=== PATIENT | male | born 1945 | race American Indian/Alaskan Native ===

== ENCOUNTER 2018-02-19 11:07 | Emergency (ER) | payer BC ==
[2018-02-19 13:24] LABS: BASO # 0.1 K/uL (0.0-0.2); BASO % 1.2 % (0.0-2.0); EOS # 0.1 K/uL (0.0-0.7); EOS % 1.4 % (0.0-4.0); LYMPH # 1.3 K/uL (1.0-4.3); LYMPH % 13.7 % (20.0-40.0); MEAN CELL VOLUME 87.1 fL (80.0-94.0); MEAN CORPUSCULAR HEMOGLOBIN 28.4 pg (27.0-31.0); MEAN CORPUSCULAR HGB CONC 32.5 g/dL (33.0-37.0); MEAN PLATELET VOLUME 6.9 fL (7.2-11.7); MONO # 0.9 K/uL (0.0-0.8); MONO % 9.6 % (0.0-10.0); NEUT # 6.9 K/uL (1.8-7.0); NEUT % 74.1 % (50.0-75.0); RBC 4.22 Mil/uL (4.40-5.90); RED CELL DISTRIBUTION WIDTH 13.1 % (11.5-14.5); WHITE BLOOD COUNT 9.3 K/uL (4.8-10.8)
--- NOTE | 2018-02-19 13:37 | C.PDOC ---
History Of Present Illness 72 year old male with a history of CVA with right sided weakness presents to the ED for evaluation of right wrist and bilateral shoulder pain x1 week. The patient states his current symptoms began after holding grocery bags with both hands. He describes the pain as sharp and worse with range of joint or palpation. Denies fever, chills, shortness of breath, chest pain, numbness, motor weakness, and any other associated symptoms. Time Seen by Provider: 02/19/18 12:34 Chief Complaint (Nursing): Upper Extremity Problem/Injury History Per: Patient History/Exam Limitations: no limitations Onset/Duration Of Symptoms: Days Current Symptoms Are (Timing): Still Present Quality: Sharp Past Medical History Reviewed: Historical Data, Nursing Documentation, Vital Signs Vital Signs: Last Vital Signs Temp 98.1 F 02/19/18 11:19 Pulse 87 02/19/18 11:19 Resp 18 02/19/18 11:19 BP 184/82 H 02/19/18 11:19 Pulse Ox 99 02/19/18 11:19 - Medical History PMH: HTN Family History: States: Unknown Family Hx - Social History Hx Alcohol Use: Yes Hx Substance Use: No - Immunization History Hx Tetanus Toxoid Vaccination: No Hx Influenza Vaccination: Yes Hx Pneumococcal Vaccination: No Review Of Systems Except As Marked, All Systems Reviewed And Found Negative. Constitutional: Negative for: Fever, Chills Cardiovascular: Negative for: Chest Pain Respiratory: Negative for: Shortness of Breath Musculoskeletal: Positive for: Shoulder Pain (bilateral. ), Other (right wrist pain. ) Neurological: Negative for: Weakness, Numbness, Incoordination Physical Exam - Physical Exam Additional Physical Exam Comments: Constitutional: No acute distress. Head: Normocephalic. Atraumatic. Eyes: PERRL. ENT: Moist mucous membranes. Neck: Supple. Cardiovascular: Regular rate. Radial pulse 2+ bilaterally. Chest: No tenderness. Respiratory: Clear to auscultation bilaterally. GI: Soft. Nontender. Nondistended. Back: No CVA tenderness. Musculoskeletal: tenderness to the right wrist over the radial aspect. Swelling to the right hand. Limited ROM of the shoulder above the shoulder level, bilaterally. Skin: No rash. Neurologic: Alert, no focal deficit. ED Course And Treatment - Laboratory Results Result Diagrams: 02/19/18 13:17 02/19/18 14:22 O2 Sat by Pulse Oximetry: 99 (RA) Pulse Ox Interpretation: Normal - Other Rad Bilat. Shoulder x-ray X-Ray: Viewed By Me, Read By Radiologist Interpretation: IMPRESSION: No acute fracture or dislocation. 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 RT Hand x-ray X-Ray: Viewed By Me, Read By Radiologist Interpretation: IMPRESSION: No acute displaced fracture or dislocation. Mild degenerative osteoarthrosis in the interphalangeal joints. RT Wrist x-ray X-Ray: Viewed By Me, Read By Radiologist Interpretation: IMPRESSION: No acute fracture dislocation. Medical Decision Making Medical Decision Making: Plan: -Blood sent. Toradol BI Shoulder X-ray RT Hand X-ray RT Wrist X-ray Patient states he feels better and asking for work note. Will discharge, f/u Dr. Martinez, instructed to return to ED for worsening pain, fever, or any other problem. Disposition - Disposition Referrals: Fabian Martinez Jr., MD [Medical Doctor] - Disposition: HOME/ ROUTINE Disposition Time: 14:41 Condition: STABLE Prescriptions: Ibuprofen [Motrin] 1 tab PO Q6 #30 tab Instructions: Shoulder Sprain (DC) Forms: [facility] (D[place]), Work Excuse - Clinical Impression Clinical Impression: Shoulder pain, Wrist pain - Scribe Statement The provider has reviewed the documentation as recorded by the Scribe (Jessica Palacios) Provider Attestation: All medical record entries made by the Scribe were at my direction and personally dictated by me. I have reviewed the chart and agree that the record accurately reflects my personal performance of the history, physical exam, medical decision making, and the department course for this patient. I have also personally directed, reviewed, and agree with the discharge instructions and disposition.
[2018-02-19 14:38] LABS: ALB/GLOB RATIO 1.2 (1.0-2.1); ALBUMIN 3.9 g/dL (3.5-5.0); ALT/SGPT 21 U/L (21-72); AST/SGOT 16 U/L (17-59); BLOOD UREA NITROGEN 11 mg/dL (9-20); GFR NON-AFRICAN AMERICAN > 60
--- NOTE | 2018-02-19 15:12 | RAD ---
Date of service: 02/19/2018 PROCEDURE: Right Wrist Radiographs. HISTORY: R wrist pain and swelling COMPARISON: None. FINDINGS: BONES: Bone alignment and mineralization are normal. There is no acute displaced fracture or bone destruction. JOINTS: The joint spaces are preserved. No dislocation. SOFT TISSUES: Normal. OTHER FINDINGS: None. IMPRESSION: No acute fracture dislocation.
--- NOTE | 2018-02-19 15:13 | RAD ---
Date of service: 02/19/2018 PROCEDURE: Radiographs of the right hand HISTORY: hand pain and swelling COMPARISON: None. FINDINGS: BONES: Bone alignment and mineralization are normal. There is no acute displaced fracture or bone destruction. JOINTS: There is mild degenerative osteoarthrosis in the interphalangeal joints. The metacarpophalangeal joints are preserved. SOFT TISSUES: Normal. OTHER FINDINGS: None. IMPRESSION: No acute displaced fracture or dislocation. Mild degenerative osteoarthrosis in the interphalangeal joints.
--- NOTE | 2018-02-19 15:16 | RAD ---
Date of service: 02/19/2018 PROCEDURE: Radiographs of both shoulders HISTORY: Bilateral shoulder pain, limited ROM COMPARISON: No prior. FINDINGS: BONES: Right shoulder: Normal. No fracture. Left shoulder: Normal. No fracture. JOINTS: Right shoulder: Mild degenerative osteoarthrosis in the acromioclavicular joint. The glenohumeral joint is normal. Left shoulder: Moderate degenerative osteoarthrosis in the acromioclavicular joint. The glenohumeral joint is normal.. SOFT TISSUES: Right shoulder: Grossly unremarkable. Right shoulder: Grossly unremarkable. OTHER FINDINGS: None. IMPRESSION: No acute fracture or dislocation. 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
[2018-02-19 15:23] VITALS: BP 132/78; PULSE 86; RESP 16; TEMP 98
[2018-02-19 15:25] VITALS: O2SAT 99
== END 2018-02-19 15:40 | disposition home or self-care (01) ==
LOC: C.ER 11:07
DX: M25.511 Pain in right shoulder (principal); M25.512 Pain in left shoulder; M25.531 Pain in right wrist
CPT/HCPCS: 73030; 73110; 73130; 80053; 85025; 96374; 99284; J1885